=== PATIENT | female | born 1970 | race Caucasian/White ===

== ENCOUNTER 2019-06-19 19:14 | Emergency (ER) | payer OTHER, SELFPAY ==
[~2019-06-19] VITALS: Ht 147.3 cm; Wt 68.0 kg
[2019-06-19 19:30] VITALS: BP 115/73
--- NOTE | 2019-06-19 19:33 | NUR ---
TO LOBBY A/W BED AMBULATORY
--- NOTE | 2019-06-19 22:49 | NUR ---
PATIENT INFORMED FRONT THAT SHE BELIEVES HER FEVER WENT UP. FEVER REASSESSED AT THIS TIME. 99.2 ORAL TEMP. PATEINT GIVEN GLASS OF WATER. DOES NOT APPEAR TO BE IN DISTRESS. AMB BACK TO LOBBY.
--- NOTE | 2019-06-19 23:14 | NUR ---
PT AMBULATED TO BED 1.
--- NOTE | 2019-06-19 23:30 | NUR ---
PATIENT ASSESSMENT COMPLETED AT THIS TIME. PATIENT GIVEN BLANKET. LAYING IN BED WITH SIDE RAIL UP. BED LOW AND LOCKED.
[2019-06-19] MEDS ORDERED: cefTRIAXone 1,000 MG in LIDOCAINE MPF 1% 2.1 ML IM ONE (23:40)
[2019-06-19] MEDS ORDERED: KETOROLAC 60 MG/2 ML VIAL IM ONE (23:40)
[2019-06-19] MEDS ORDERED: cefTRIAXone 1,000 MG VIAL ONE (23:53)
[2019-06-19] MEDS ORDERED: LIDOCAINE MPF 1% 5 ML ONE (23:54)
[2019-06-20 00:09] VITALS: BP 120/45
--- NOTE | 2019-06-20 00:09 | NUR ---
Patient discharged with v/s stable. Written and verbal after care instructions given and explained. Patient alert, oriented and verbalized understanding of instructions. Ambulatory with steady gait. All questions addressed prior to discharge. ID band removed. Patient advised to follow up with PMD. Rx of TESSALON PERLES, NAPROSYN, AUGMENTIN given. Patient educated on indication of medication including possible reaction and side effects. Opportunity to ask questions provided and answered.
== END 2019-06-20 00:09 | disposition home or self-care (01) ==
LOC: MED 19:14
DX: J40 Bronchitis, not specified as acute or chronic (principal); Z90.49 Acquired absence of other specified parts of digestive tract; Z98.41 Cataract extraction status, right eye
CPT/HCPCS: 71045; 96372; 99283; J0696; J1885; J2001

== ENCOUNTER 2021-02-27 15:43 | Emergency (ER) | payer OTHER ==
[~2021-02-27] VITALS: Ht 149.9 cm; Wt 74.8 kg
[2021-02-27 15:45] VITALS: BP 114/69
--- NOTE | 2021-02-27 15:56 | NUR ---
BIB SELF C/O GERALIZED ITCHY RASH X 15 HOURS . TOOK BENADRYLE 1 HOUR AGO. PMH:GALL BLADDER REMOVAL
[2021-02-27] MEDS ORDERED: PRED20TA5 PO (16:20)
[2021-02-27 16:43] VITALS: BP 114/69
== END 2021-02-27 16:44 | disposition home or self-care (01) ==
LOC: MED 15:43
DX: L50.0 Allergic urticaria (principal)
CPT/HCPCS: 99283

== ENCOUNTER 2022-11-29 00:35 | Emergency (ER) | payer OTHER ==
[~2022-11-29] VITALS: Ht 149.9 cm; Wt 77.1 kg
[~2022-11-29 00:35] MED LIST: PRED20TA5 PO
[2022-11-29 01:13] VITALS: BP 144/83
--- NOTE | 2022-11-29 01:18 | NUR ---
TO LOBBY FOLLOWING TRIAGE
--- NOTE | 2022-11-29 02:06 | NUR ---
PT TAKEN TO BED 5
[2022-11-29] MEDS ORDERED: methylPREDNISolone SS 125 MG in WATER STERILE 2 ML IM ONE (03:00)
[2022-11-29] MEDS ORDERED: methylPREDNISolone SS 125 MG/2 ML VIAL ONE (03:04)
[2022-11-29] MEDS ORDERED: WATER STERILE 10 ML MC ONE (03:04)
[2022-11-29] MEDS ORDERED: METH4TAB1 PO (03:34)
[2022-11-29] MEDS ORDERED: FEXO180T82 PO (03:34)
--- NOTE | 2022-11-29 03:40 | NUR ---
Patient discharged with v/s stable. Written and verbal after care instructions given and explained. Patient alert, oriented and verbalized understanding of instructions. Ambulatory with steady gait. All questions addressed prior to discharge. ID band removed. Patient advised to follow up with PMD. Rx of fexofenadine hci and methylprednisolone dp given Opportunity to ask questions provided and answered. DR. De Los Santos's orders reinforced
== END 2022-11-29 03:40 | disposition home or self-care (01) ==
LOC: MED 00:35
DX: L29.9 Pruritus, unspecified (principal); T37.0X5A Adverse effect of sulfonamides, initial encounter; R21 Rash and other nonspecific skin eruption; Z90.49 Acquired absence of other specified parts of digestive tract; Z79.899 Other long term (current) drug therapy; Y92.89 Other specified places as the place of occurrence of the external cause
CPT/HCPCS: 96372; 99283; J2930

== ENCOUNTER 2024-04-23 07:29 | Day surgery (SDC) | payer OTHER ==
[~2024-04-23] VITALS: Ht 147.3 cm; Wt 72.6 kg
[~2024-04-23 07:29] MED LIST changes: +FEXO180T82 PO; +METH4TAB1 PO
[2024-04-23] MEDS ORDERED: fentaNYL citrate 0.05 MG/ML VIAL ONE (08:36)
[2024-04-23] MEDS ORDERED: LIDOCAINE 2% 100 MG/5 ML UJET TP ONE ×2 (08:36→16:00)
[2024-04-23] MEDS: fentaNYL citrate 0.05 MG/ML VIAL IVP ONE (08:52)
== END 2024-04-23 10:22 | disposition home or self-care (01) ==
LOC: MDS 07:29 → MMU 07:31 → MDS 10:22
PROVIDERS: ATTEND Internal Medicine Gastroenterology
DX: Z12.11 Encounter for screening for malignant neoplasm of colon (principal); K75.81 Nonalcoholic steatohepatitis (NASH); Z88.2 Allergy status to sulfonamides; Z88.1 Allergy status to other antibiotic agents; Z80.0 Family history of malignant neoplasm of digestive organs; Z98.890 Other specified postprocedural states
CPT/HCPCS: 45378; 82948; J3010